=== PATIENT | female | born 1995 | race Caucasian/White ===

== ENCOUNTER 2018-11-26 09:49 | Emergency (ER) | payer OTHER, SELFPAY ==
[2018-11-26 10:03] VITALS: BP 119/68; PULSE 73; RESP 16; TEMP 36.9; O2SAT 97
--- NOTE | 2018-11-26 10:32 | ED.GENADUL_ITS ---
Discharge Plan Disposition Patient Disposition: HOME Discharge Details Chief Complaint: EarProblem Clinical Impression: Infected pierced ear Primary Care Provider: None,None ED Provider: Callum Lara Home Meds and New Rx's Prescriptions: New cephalexin [Keflex] 500 mg capsule 500 mg PO QID Qty: 40 RF: 0 Continued melatonin 5 MG tablet 5 mg PO HS RF: 0 medroxyprogesterone [Depo-Provera] 150 MG/1 ML suspension 150 mg IM Q 12 WEEKS Qty: 1 RF: 3 Discharge Instructions Instructions: Cellulitis (ED) Additional Instructions: Please take full 10-day course of antibiotic as prescribed. Please contact your primary care physician to arrange follow-up. Return to the ER for any worsening or new concerning symptoms. Medical Decision Making 23-year-old female here with infection of left tragus ear piercing. Hearing was removed by me. Patient had purulent discharge from piercing hole. Plan to treat with Keflex. Tetanus is not up-to-date. Will provide tetanus immunization. Usual and customary discharge instructions were provided. Patient verbalized understanding of discharge instruction. Patient does not currently have a primary care physician. She should have routine follow-up for this infection. I have placed her on care management list to arrange new primary care physician. HPI General Mode of arrival: ambulatory . Date/Time Provider Initiated Documentation: 11/26/18 10:15 . Limitations to Documentation: no limitations . Information obtained by: patient . HPI Narrative: 23-year-old female here with pain and swelling of her right tragus. Patient notes symptoms started about 1 week ago. She has an associated bump behind her ear. No associated inner ear pain or fever. Symptoms are moderate. No modifiers. Related Data Home Medications Medication Instructions Recorded Confirmed melatonin 5 mg PO HS 06/27/15 11/26/18 medroxyprogesterone [Depo-Provera] 150 mg IM Q 12 WEEKS #1 vial 01/02/18 11/26/18 cephalexin [Keflex] 500 mg PO QID #40 cap 11/26/18 Previous Rx's Medication Instructions Recorded medroxyprogesterone [Depo-Provera] 150 mg IM Q 12 WEEKS #1 vial 01/02/18 cephalexin [Keflex] 500 mg PO QID #40 cap 11/26/18 Allergies Allergy/AdvReac Type Severity Reaction Status Date / Time No Known Allergies Allergy Verified 11/26/18 10:05 General Stated Complaint: EarProblem TONG: 4 Review of Systems ENT Reports as per [facility] Integumentary/Breasts Reports as per [facility] Medical History Contraception (Acute 06/01/15) Social History Smoking/Tobacco Use Status: Never Alcohol Intake: never Drug use: Never Substance use type: does not use Seatbelt use: always Female Reproductive History Menstrual control method: progesterone injection (No menses with her depo) Exam Const General: cooperative and no acute distress HENMT Head: normocephalic and atraumatic Ears: TM normal on the right, TM normal on the left, EAC's normal and periauricular adenopathy on the right (single 1cm node) General nose exam: external nose normal Mouth: moist mucous membranes Eyes Conjunctivae: normal conjunctivae Neck Neck: no lymphadenopathy, trachea midline and supple Skin General skin exam: no rashes or lesions noted, erythema (localized to tragus) and other (small purulent drainage expressed from piercing hole tragus) Course Vital Signs Temperature 36.9 C 11/26/18 10:03 Pulse 73 11/26/18 10:03 Respiratory Rate 16 11/26/18 10:03 Blood Pressure 119/68 11/26/18 10:03 Pulse Oximetry 97 11/26/18 10:03 Temperature 36.9 C 11/26/18 10:03 Temperature Source Skin 11/26/18 10:03 Pulse 73 11/26/18 10:03 Respiratory Rate 16 11/26/18 10:03 Respiratory Effort Non-Labored 11/26/18 10:03 Blood Pressure 119/68 11/26/18 10:03 Blood Pressure Position Sitting 11/26/18 10:03 Pulse Oximetry 97 11/26/18 10:03 Oxygen Delivery Method Room Air 11/26/18 10:03 Oxygen Flow Rate 0 11/26/18 10:03 Pain Level 1 11/26/18 10:03
== END 2018-11-26 12:09 | disposition home or self-care (01) ==
PROVIDERS: Emergency Provider Student in an Organized Health Care Education/Training Program
DX: H60.12 Cellulitis of left external ear (principal)
CPT/HCPCS: 90471; 99283

== ENCOUNTER 2019-06-03 16:25 | Outpatient (REF) | payer OTHER, SELFPAY ==
--- NOTE | 2019-06-03 14:20 | PAPFT_PTH ---
PATIENT: Nissa Ward LOC: [facility] U#:[id number] AGE/SX: 24/F ROOM: RE06/03/[address]: VLAD Spangler : 1995 BED: DIS: 06/03/2019 SPEC #: [id number] RECD: 06/03/19 17:43 STATUS: ALEXA REQ #: [id number] MARIZOL: 06/03/19 14:[address]: Dior Wren DEPT: [facility] Cytology RECD BY: Aidee Blake ENTERED: 06/03/19 17:43 SP TYPE: PAPFT NADER DR: None Tissues: 1 - CX/ENDOCX FOR PAP SMEARS Procedures: PAP THIN PREP/[facility] Screening Comments: [id number]
[2019-06-07 15:51] LABS: Chlamydia Result Negative (Negative); GC Result Negative (Negative); Specimen Description CERVIX
== END 2019-06-03 16:45 ==
LOC: LBN 16:25
PROVIDERS: Visit Provider Nurse Practitioner Family
DX: Z11.3 Encounter for screening for infections with a predominantly sexual mode of transmission (principal); Z12.4 Encounter for screening for malignant neoplasm of cervix; Z11.51 Encounter for screening for human papillomavirus (HPV)
CPT/HCPCS: 87491; 87591; 88142

== ENCOUNTER 2019-07-26 13:13 | Outpatient (REF) | payer OTHER, SELFPAY ==
[2019-07-26 19:14] LABS: TSH (W/Ref FT4) 2.57 uIU/mL (0.36-3.74)
[2019-07-26 19:28] LABS: Vitamin D 25 Total 26.3 ng/ml (30-100)
== END 2019-07-26 13:33 ==
LOC: NCHCN 13:13
PROVIDERS: PCP Nurse Practitioner; Visit Provider Nurse Practitioner
DX: Z13.21 Encounter for screening for nutritional disorder (principal); Z13.29 Encounter for screening for other suspected endocrine disorder
CPT/HCPCS: 82306; 84443

== ENCOUNTER 2020-04-25 14:38 | Outpatient (REF) | payer OTHER, SELFPAY ==
[2020-04-27 22:14] LABS: SARS-CoV-2 RNA Undetected (Undetected)
== END 2020-04-25 14:58 ==
LOC: NCHCN 14:38
PROVIDERS: PCP Nurse Practitioner; Visit Provider Nurse Practitioner Family
DX: Z20.828 Contact with and (suspected) exposure to other viral communicable diseases (principal)
CPT/HCPCS: U0003

== ENCOUNTER 2021-07-13 15:40 | Outpatient (REF) | payer SELFPAY ==
--- NOTE | 2021-07-13 15:15 | PAPFT_PTH ---
PATIENT: Nissa Ward LOC: N U#:[id number] AGE/SX: 26/F ROOM: RE07/13/[address]: VLAD Spangler : 1995 BED: DIS: 07/13/2021 SPEC #: [id number] RECD: 07/13/21 18:20 STATUS: ALEXA REQ #: [id number] MARIZOL: 07/13/21 15:[address]: Dior Wren DEPT: [facility] Cytology RECD BY: Aidee Blake ENTERED: 07/13/21 18:21 SP TYPE: PAPFT OTHR DR: Stephanie Cordova Tissues: 1 - CX/ENDOCX FOR PAP SMEARS Procedures: PAP THIN PREP/[facility] Screening Comments: [id number]
== END 2021-07-13 15:41 | disposition home or self-care (01) ==
LOC: LBN 15:40
PROVIDERS: PCP Nurse Practitioner; Visit Provider Nurse Practitioner Family
DX: Z12.4 Encounter for screening for malignant neoplasm of cervix (principal)
CPT/HCPCS: 88142

== ENCOUNTER 2021-09-25 10:51 | Emergency (ER) | payer OTHER, SELFPAY ==
[2021-09-25 10:56] VITALS: BP 126/76; PULSE 89; RESP 12; TEMP 36.9; O2SAT 97
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
[2021-09-25 12:21] VITALS: BP 123/64; PULSE 81; RESP 17; TEMP 36.3; O2SAT 97
== END 2021-09-25 12:22 | disposition home or self-care (01) ==
PROVIDERS: Emergency Provider Physician Assistant; PCP Nurse Practitioner
DX: S97.82XA Crushing injury of left foot, initial encounter (principal); W31.89XA Contact with other specified machinery, initial encounter
CPT/HCPCS: 99283; 73630

== ENCOUNTER 2024-11-30 16:10 | Outpatient (REF) | payer OTHER, SELFPAY ==
--- NOTE | 2024-11-30 15:40 | PAPFT_PTH ---
PATIENT: Nissa Ward LOC: [facility] U#:[id number] AGE/SX: 29/F ROOM: RE11/30/[address]: Stefanie Sanders NP : 1995 BED: DIS: 11/30/2024 SPEC #: [id number] RECD: 11/30/24 18:10 STATUS: ALEXA REMckay #: [id number] MARIZOL: 11/30/24 15:[address]: Stefanie Sanders NP DEPT: [facility] Cytology RECD BY: Aidee Blake ENTERED: 11/30/24 18:10 SP TYPE: PAPFT OTHR DR: JERMAINE GRESHAM NP Tissues: 1 - CX/ENDOCX FOR PAP SMEARS Procedures: PAP THIN PREP/[facility] Screening Comments: [id number]
== END 2024-11-30 16:11 | disposition home or self-care (01) ==
LOC: LBN 16:10
PROVIDERS: PCP Nurse Practitioner Family; Visit Provider Nurse Practitioner Women's Health
DX: Z12.4 Encounter for screening for malignant neoplasm of cervix (principal)
CPT/HCPCS: 88142